=== PATIENT | female | born 1955 | race Caucasian/White ===

== ENCOUNTER 2019-04-28 15:29 | Emergency (ER) | payer MEDICAID ==
[~2019-04-28] VITALS: Ht 167.6 cm; Wt 104.8 kg
[2019-04-28 16:00] VITALS: Ht 167.6 cm; Wt 104.8 kg
[2019-04-28 17:58] VITALS: BP 136/76
== END 2019-04-28 17:58 | disposition home or self-care (01) ==
LOC: ED 15:29
DX: J02.9 Acute pharyngitis, unspecified (principal); R07.89 Other chest pain
CPT/HCPCS: J1885